=== PATIENT | male | born 1965 | race Caucasian/White ===

== ENCOUNTER 2021-03-09 07:09 | Day surgery (SDC) | payer OTHER ==
[2021-03-09] VITALS (8 sets, daily range): BP systolic 95–127; BP diastolic 58–69; PULSE 45–56; TEMP 98–98.9
[~2021-03-09] VITALS: Ht 175.3 cm; Wt 76.9 kg
[2021-03-09] MEDS ORDERED: ONE-A-DAY ESSE1 EACH PO (09:18)
[2021-03-09] MEDS ORDERED: NORCO 325 MG-51 TAB PO (09:32)
--- NOTE | 2021-03-09 11:40 | NUR ---
Patient returns to room 2 per cart from PACU accompanied by Hayley GORDILLO and is awake and alert. Temp 98% on 2L oxygen per nasal cannula. Temp 97.6. Bandaid below umbilicus clean and dry. Exofin skin glue covering abdominal incisions x3 dry and wound edges well approixmated. IV fluids infusing and site is free of redness or swelling. Siderails up x2 and call light in reach. Patient is taking ice chips. Allowed to rest.
--- NOTE | 2021-03-09 12:10 | NUR ---
Continues to take ice chips and denies nausea.
--- NOTE | 2021-03-09 12:25 | NUR ---
Requesting chicken beroth and given. Sitting up on cart. Oxygen removed. Will continue to monitor sats.
--- NOTE | 2021-03-09 12:40 | NUR ---
Sipping on Sprite. Denies pain or nausea.
--- NOTE | 2021-03-09 13:45 | NUR ---
INT needle discontinued and site is free of redness or swelling. Patient dresses self. Continues to deny pain or nausea.
--- NOTE | 2021-03-09 13:45 | NUR ---
Assisted up to the bathroom and IV to INT. Tolerates activity well.
--- NOTE | 2021-03-09 14:05 | NUR ---
Dismissal instructions given and signed. Voices understanding of these. Provided office number for questions and concerns.
== END 2021-03-09 14:05 | disposition home or self-care (01) ==
LOC: SDCO 07:09
DX: K40.90 Unilateral inguinal hernia, without obstruction or gangrene, not specified as recurrent (principal); D22.9 Melanocytic nevi, unspecified; Z20.822 Contact with and (suspected) exposure to COVID-19; Z82.49 Family history of ischemic heart disease and other diseases of the circulatory system
CPT/HCPCS: C1781; J0690; J1100; J1885; J2405; J2704; J3010; J7120